=== PATIENT | male | born 1975 | race African-American/Black ===

== ENCOUNTER 2024-11-11 15:55 | Emergency (ER) | payer OTHER ==
[~2024-11-11] VITALS: Ht 170.2 cm; Wt 113.4 kg
[2024-11-11] MEDS ORDERED: LIDO30AD10 TP (18:24)
[2024-11-11] MEDS ORDERED: CYCL5TAB PO (18:24)
[2024-11-11] MEDS ORDERED: IBUP-1955 PO (18:24)
[2024-11-11] MEDS ORDERED: LIDOCAINE 5% (PATCH) 1 EA PATCH TP ONE (18:27)
[2024-11-11] MEDS ORDERED: HYDROCODONE/APAP 5/325MG TABLET ONE (18:28)
[2024-11-11] MEDS ORDERED: KETOROLAC TROMETHAMINE 15 MG/ML VIAL ONE (18:28)
[2024-11-11] MEDS: LIDOCAINE 5% (PATCH) 1 EA PATCH TP STA (18:38)
[2024-11-11] MEDS: KETOROLAC TROMETHAMINE 15 MG/ML VIAL IM ONE (18:38)
[2024-11-11] MEDS: HYDROCODONE/APAP 5/325MG TABLET PO ONE (18:38)
[2024-11-11 18:39] VITALS: BP 138/80; TEMP 98.7; O2SAT 98
== END 2024-11-11 18:39 | disposition home or self-care (01) ==
LOC: ER 16:00
DX: S46.812A Strain of other muscles, fascia and tendons at shoulder and upper arm level, left arm, initial encounter (principal); I10 Essential (primary) hypertension; Z87.19 Personal history of other diseases of the digestive system; Z87.39 Personal history of other diseases of the musculoskeletal system and connective tissue; Y04.0XXA Assault by unarmed brawl or fight, initial encounter; Y93.89 Activity, other specified; Y92.89 Other specified places as the place of occurrence of the external cause; Y99.8 Other external cause status
CPT/HCPCS: 99283; 96372; 73030; J1885